=== PATIENT | female | born 1970 | race Caucasian/White ===

== ENCOUNTER 2017-11-23 18:46 | Emergency (ER) | payer OTHER ==
[~2017-11-23] VITALS: Ht 154.9 cm; Wt 45.4 kg
[~2017-11-23 18:46] MED LIST: Ativan1 MG PO; PROM25 PO; RANI150 PO
[2017-11-23] MEDS ORDERED: NYST100000 SS (20:22)
== END 2017-11-23 20:45 | disposition home or self-care (01) ==
LOC: ER 18:46
DX: B37.0 Candidal stomatitis (principal); Z87.891 Personal history of nicotine dependence
CPT/HCPCS: 99283

== ENCOUNTER 2018-02-06 18:10 | Emergency (ER) | payer OTHER ==
[~2018-02-06] VITALS: Ht 154.9 cm; Wt 45.4 kg
[~2018-02-06 18:10] MED LIST changes: +NYST100000 SS
[2018-02-06 19:13] LABS: Source, Urine Clean Catch
[2018-02-06 19:23] LABS: BASOPHILS ABSOLUTE AUTO 0.05 K/mm3 (0.00-0.23); BASOPHILS PERCENT AUTO 1 % (0-2); EOSINOPHILS PERCENT AUTO 2 % (0-6); Hematocrit 39.8 % (33.0-51.0); Hemoglobin 13.3 g/dL (11.5-16.0); IMMATURE GRAN ABSOLUTE AUTO 0.01 K/mm3 (0.00-0.10); IMMATURE GRAN PERCENT AUTO 0 % (0-1); LYMPHOCYTES ABSOLUTE AUTO 1.59 K/mm3 (0.84-5.20); LYMPHOCYTES PERCENT AUTO 30 % (21-46); MONOCYTES ABSOLUTE AUTO 0.42 K/mm3 (0.16-1.47); MONOCYTES PERCENT AUTO 8 % (4-13); Mean Corpuscular HGB 30.6 pg (26.0-34.0); Mean Corpuscular HGB Conc 33.4 g/dL (31.5-36.5); Mean Corpuscular Volume 92 fL (80-100); Mean Platelet Volume 10.6 fL (9.1-12.4); NEUTROPHILS ABSOLUTE AUTO 3.18 K/mm3 (1.96-9.15); NEUTROPHILS PERCENT AUTO 59 % (41-73); Platelet Count 249 K/mm3 (150-400); RDW Coefficient Variation 13.1 % (11.7-14.2); RDW Standard Deviation 43.4 fL (35.1-46.3); Red Blood Cell Count 4.35 M/mm3 (3.80-5.20); White Blood Cell Count 5.35 K/mm3 (4.00-11.30)
[2018-02-06 19:25] LABS: Bilirubin, Urine Neg (Neg); Blood, Urine Neg (Neg); Glucose Qualitative, Urine Neg (Neg); Ketones, Urine 1+ (Neg); Leukocyte Esterase, Urine 1+ (Neg); Nitrite, Urine Pos (Neg); Protein, Urine 1+ (Neg); Urobilinogen, Urine NORM (Normal)
[2018-02-06 19:38] LABS: Appearance, Urine Hazy (Clear); Color, Urine Yellow (P-Yellow)
[2018-02-06 19:39] LABS: Bacteria Many /hpf; Red Blood Cells, Urine 0-2 /hpf (0-2); Squamous Epithelial Cells Many /hpf (Few)
[2018-02-06 19:45] LABS: Alanine Aminotransfer (ALT/SGP 18 U/L (12-78); Albumin/Globulin Ratio 1.1 (0.8-1.8); Alk Phos 45 U/L (50-136); Anion Gap 8 mmol/L (6-16); Aspartate Aminotrans (AST/SGOT 19 U/L (12-37); Beta HCG, Quantitative, Serum <1 mIU/mL (0-3); Bilirubin, Total 0.4 mg/dL (0.1-1.0); Blood Urea Nitrogen 19 mg/dL (8-24); Bun/Creatinine Ratio 20.1 (12.0-20.0); CO2, Blood 31 mmol/L (21-32); Calcium, Blood 9.1 mg/dL (8.5-10.1); Chloride, Blood 101 mmol/L (98-108); Creatinine, Blood 0.95 mg/dL (0.40-1.00); Globulin, Blood 3.7 g/dL (2.2-4.0); Glomerular Filtration Rate >60 (60-); Glucose, Blood 87 mg/dL (70-99); Potassium, Blood 2.9 mmol/L (3.5-5.5); Sodium, Blood 140 mmol/L (136-145); Total Protein, Blood 7.7 g/dL (6.4-8.2)
== END 2018-02-06 21:35 | disposition home or self-care (01) ==
LOC: ER 18:10
PROVIDERS: Physician Assistant
DX: O09.511 Supervision of elderly primigravida, first trimester (principal); O03.9 Complete or unspecified spontaneous abortion without complication; O03.83 Metabolic disorder following complete or unspecified spontaneous abortion; E87.6 Hypokalemia; Z87.891 Personal history of nicotine dependence
CPT/HCPCS: 36415; 76801; 76830; 80053; 81001; 81025; 84702; 85025; 86900; 86901; 87077; 87086; 87186; 99284-25

== ENCOUNTER → 2018-10-05 | Outpatient (CLI) | payer OTHER ==
[2018-10-08 04:06] LABS: CHLAMYDIA TRACHOMATIS, NAA Positive (Negative); NEISSERIA GONORRHOEAE, NAA Negative (Negative)
== END ==
LOC: LAB SHORT 18:00 → LAB 18:00
PROVIDERS: Nurse Practitioner Family
DX: Z72.51 High risk heterosexual behavior (principal)
CPT/HCPCS: 87491; 87591

== ENCOUNTER → 2019-10-09 | Outpatient (CLI) | payer OTHER ==
[2019-10-10 11:10] LABS: Candida species (DNA Probe) Negative (NEGATIVE); G. vaginalis (DNA Probe) Positive (NEGATIVE); T. vaginalis (DNA Probe) Negative (NEGATIVE)
[2019-10-10 13:08] LABS: HPV 16 Negative (Negative); HPV 18 Negative (Negative); HPV OTHER HR TYPES Negative (Negative)
[2019-10-11 02:08] LABS: CHLAMYDIA TRACHOMATIS, NAA Negative (Negative); NEISSERIA GONORRHOEAE, NAA Negative (Negative)
== END ==
LOC: LAB 14:51 → LAB SHORT 14:51
PROVIDERS: Nurse Practitioner Family
DX: Z01.419 Encounter for gynecological examination (general) (routine) without abnormal findings (principal); Z72.51 High risk heterosexual behavior; R30.0 Dysuria
CPT/HCPCS: 87070; 87077; 87086; 87186; 87205; 87480; 87491; 87510; 87591; 87624; 87660; G0145

== ENCOUNTER → 2020-03-18 | Outpatient (CLI) | payer OTHER ==
[2020-03-18 14:35] LABS: Source, Urine Clean Catch
[2020-03-18 16:36] LABS: Bilirubin, Urine Neg (Neg); Blood, Urine Neg (Neg); Glucose Qualitative, Urine Neg (Neg); Ketones, Urine Neg (Neg); Leukocyte Esterase, Urine 1+ (Neg); Nitrite, Urine Neg (Neg); Protein, Urine 1+ (Neg); Urobilinogen, Urine NORM (Normal)
[2020-03-18 16:49] LABS: Appearance, Urine Clear (Clear); Color, Urine Yellow (P-Yellow)
[2020-03-18 16:50] LABS: Bacteria Few /hpf; Red Blood Cells, Urine 0-2 /hpf (0-2); Squamous Epithelial Cells Few /hpf (Few); White Blood Cells, Urine 0-2 /hpf (0-5)
== END ==
LOC: LAB 14:31 → LAB SHORT 14:31
PROVIDERS: Nurse Practitioner Family
DX: R30.0 Dysuria (principal)
CPT/HCPCS: 81001; 87086

== ENCOUNTER → 2020-06-10 | Outpatient (CLI) | payer OTHER ==
[~2020-06-10] MED LIST changes: +ALLO300 PO
[2020-06-10 13:06] LABS: Source, Urine Clean Catch
[2020-06-10 15:29] LABS: Appearance, Urine Clear (Clear); Bilirubin, Urine Neg (Neg); Blood, Urine Neg (Neg); Color, Urine Yellow (P-Yellow); Glucose Qualitative, Urine Neg (Neg); Ketones, Urine Neg (Neg); Leukocyte Esterase, Urine 1+ (Neg); Nitrite, Urine Neg (Neg); Protein, Urine Neg (Neg); Urobilinogen, Urine NORM (Normal)
[2020-06-10 15:42] LABS: Bacteria Mod /hpf; Red Blood Cells, Urine 0-2 /hpf (0-2); Squamous Epithelial Cells Few /hpf (Few)
[2020-06-11 10:42] LABS: Candida species (DNA Probe) Negative (NEGATIVE); G. vaginalis (DNA Probe) Negative (NEGATIVE); T. vaginalis (DNA Probe) Negative (NEGATIVE)
== END ==
LOC: LAB SHORT 13:04 → LAB 13:04
PROVIDERS: Obstetrics & Gynecology
DX: N89.8 Other specified noninflammatory disorders of vagina (principal)
CPT/HCPCS: 81001; 87086; 87480; 87510; 87660

== ENCOUNTER 2020-10-04 17:57 | Emergency (ER) | payer OTHER ==
[~2020-10-04] VITALS: Ht 157.5 cm; Wt 49.9 kg
[~2020-10-04 17:57] MED LIST changes: -ALLO300 PO
[2020-10-04] MEDS ORDERED: ALLO300 PO (18:19)
== END 2020-10-04 20:15 | disposition home or self-care (01) ==
LOC: ER 17:57
DX: S52.202A Unspecified fracture of shaft of left ulna, initial encounter for closed fracture (principal); Z79.899 Other long term (current) drug therapy; W10.9XXA Fall (on) (from) unspecified stairs and steps, initial encounter
CPT/HCPCS: 29125; 73090; 99283-25

== ENCOUNTER 2020-10-24 07:30 | Day surgery (SDC) | payer OTHER ==
[~2020-10-24] VITALS: Ht 160 cm; Wt 44.8 kg
[~2020-10-24 07:30] MED LIST changes: +ALLO300 PO
--- NOTE | 2020-10-24 08:46 | NUR ---
10/24/20 0846 Rhina López V PT STATES SHE IS EXTREMELY NERVOUSE ABOUT THE PROCEDURE SHE HAS "NEVER HAD SURGERY BEFORE". PT STATES SHE DOES NOT WANT ANY MEDICATION FOR THIS PROCEDURE AND THAT SHE WOULD LIKE TO HAVE IT DONE UNDER LOCAL. PT WAS PRETTY ADAMENT ABOUT NOT WANTING AN IV BUT AFTER SOME EDUCATION PT AGREED TO IV. RN TOLD PT SHE WILL HAVE A CHANCE TO SPEAK WITH THE SURGEON AND THE ANESTHESIOLOGIST PRIOR TO HER PROCEDURE AND THEY COULD COME UP WITH A PLAN TOGETHER.
--- NOTE | 2020-10-24 10:35 | NUR ---
10/24/20 1035 Nicol Bennett BUPIVACAINE 0.5% 50ML MIXED WITH EPI 0.15MG TO CONSTITUTE BUPIVACAINE 0.5% W/EPI 1:200,000 FOR INJECTION DURING PROCEDURE BY DR. DUNN.
== END 2020-10-24 12:05 | disposition home or self-care (01) ==
LOC: ORSCSDS 07:30
PROVIDERS: Orthopaedic Surgery
PROC: 0PSL04Z Reposition Left Ulna with Internal Fixation Device, Open Approach (ICD-10-PCS; principal; 2020-10-24 08:45)
DX: S52.232D Displaced oblique fracture of shaft of left ulna, subsequent encounter for closed fracture with routine healing (principal)
CPT/HCPCS: C1713; J0171; J0690; J1100